=== PATIENT | female | born 1980 | race Two or more races ===

== ENCOUNTER 2018-09-09 03:40 | Emergency (ER) | payer MEDICAID ==
[~2018-09-09] VITALS: Ht 152.4 cm; Wt 79.4 kg
[2018-09-09 03:48] VITALS: Ht 152.4 cm; Wt 79.4 kg
[2018-09-09 06:06] VITALS: BP 96/42
== END 2018-09-09 06:06 | disposition home or self-care (01) ==
LOC: ED 03:40
DX: K94.01 Colostomy hemorrhage (principal); Z85.038 Personal history of other malignant neoplasm of large intestine